=== PATIENT | female | born 2000 | race Caucasian/White ===

== ENCOUNTER 2021-04-26 10:09 | Emergency (ER) | payer OTHER ==
[2021-04-26 11:11] LABS: HEMOGLOBIN 13.3 gm/dl (12.3-15.3); RED BLOOD COUNT 4.78 M/UL (4.00-5.10); WHITE BLOOD COUNT 6.4 K/UL (4.5-11.0)
[2021-04-26 11:44] LABS: BUN/CREATININE RATIO 12 (0-10)
== END 2021-04-26 18:14 | disposition home or self-care (01) ==
LOC: ER1 10:09
PROVIDERS: Physician Assistant
DX: U07.1 COVID-19 (principal)
CPT/HCPCS: 71045; 80053; 82550; 82553; 83605; 83874; 84439; 84443; 84484; 84703; 85025; 87040; 93005; 96374; 99284; J2405; J7030; U0002